=== PATIENT | female | born 1950 | race Caucasian/White ===

== ENCOUNTER 2017-03-31 07:05 | Day surgery (SDC) | payer MEDICARE, MEDICAID ==
[~2017-03-31] VITALS: Ht 170.2 cm; Wt 73.9 kg
[~2017-03-31 07:05] MED LIST: ADVANCED FIBER COMPL PO; APAP PO; ASPIRIN ADULT L81 MG PO; ATORVASTATI80 MG/TAB PO; CLEMASTINE2.68 MG PO; CODEINE PO; FIORICET PO; FOSRENOL500 MG PO; FUROSEMIDE40 MG PO; GABAPENTIN300 MG PO; GLIPIZIDE10 MG PO; HUMULIN R500 UNIT/M; HUMULIN SC; KLOR-CON20 MEQ PO; LANTUS100 UNIT/M; LASIX 40 MG TAB40 MG PO; LYRICA100 MG PO; LYRICA150 MG PO; LYRICA50 MG PO; METOLAZONE5 MG PO; METOPROL TAR25 M1 PO; PLAVIX75 MG PO; PREDNISONE SOLUT5 ML AU; PROTONIX40 M2 PO; RANITIDINE150 M1 PO; TRAMADOL HCL50 MG PO; ULTRAM50 M1 PO; VITAMIN D1000 UNIT PO; VITAMIN D22000 UNIT PO; VOLTAREN1%GEL TOP; XANAX0.5 MG PO; ZESTRIL5 M1 PO; [UNRECOGNIZED DRUG - OTHER] EX
[2017-03-31 09:32] VITALS: BP 163/79
== END 2017-03-31 09:45 | disposition home or self-care (01) ==
LOC: ORM 07:05
PROVIDERS: ATTEND Anesthesiology Pain Medicine
PROC: 3E0T3TZ Introduction of Destructive Agent into Peripheral Nerves and Plexi, Percutaneous Approach (ICD-10-PCS; principal; 2017-03-31)
DX: M54.5 Low back pain (principal); M47.816 Spondylosis without myelopathy or radiculopathy, lumbar region

== ENCOUNTER 2017-11-03 19:46 | Inpatient (IN) | payer MEDICARE, MEDICAID ==
[~2017-11-03] VITALS: Ht 170.2 cm; Wt 69.8 kg
[~2017-11-03 19:46] MED LIST changes: +HUMULIN 70/30 SC
[2017-11-03 20:26] LABS: INFLUENZA A NONE DETECTED (NONE DETECT); INFLUENZA B NONE DETECTED (NONE DETECT)
[2017-11-03 21:23] LABS: HEMATOCRIT 30.2 % (37.0-47.0); HEMOGLOBIN 10.2 g/dl (12.0-16.0); IMMATURE GRANULOCYTES 0.6 % (0.0-1.0); MEAN CELL VOLUME 91.5 fL CALC (80.0-100.0); MEAN CORPUSCULAR HGB 30.9 pG CALC (26.0-32.0); MEAN CORPUSCULAR HGB CONC 33.8 g/L CALC (32.0-36.0); NEUT# 4.44 thou/uL (2.00-7.15); RED BLOOD COUNT 3.3 mill/uL (4.20-5.60); RED CELL DISTRI WIDTH 12.6 % (11.5-15.5)
[2017-11-03 21:28] LABS: ALBUMIN 3.6 g/dL (3.2-5.0); BILIRUBIN, TOTAL 0.4 mg/dL (0.0-1.4); CREATININE 2.5 mg/dL (0.5-1.0); POTASSIUM 3.9 mmol/l (3.5-5.1)
[2017-11-03 21:36] LABS: URINE BILIRUBIN - DIPSTICK NEGATIVE (NEGATIVE); URINE BLOOD DIPSTICK MODERATE (NEGATIVE); URINE COLOR YELLOW; URINE GLUCOSE - DIPSTICK >=1000 mg/dL (NEGATIVE); URINE KETONE NEGATIVE (NEGATIVE); URINE NITRITE - DIPSTICK NEGATIVE (Negative); URINE PH 5.5 (4.5-8.0); URINE PROTEIN - DIPSTICK 30 mg/dL (NEG-TRACE); URINE UROBILINOGEN - DIPSTICK 0.2 E.U./dL (0.2)
[2017-11-03 21:40] LABS: URINE CLARITY CLOUDY; URINE LEUK ESTERASE SMALL (NEGATIVE)
[2017-11-03 21:42] LABS: URINE BACTERIA MODERATE hpf; URINE SQUAMOUS EPITHELIAL CELL FEW EPI/hpf (0-FEW)
[2017-11-03 22:30] VITALS: BP 135/58
[2017-11-04 04:07] VITALS: BP 145/68
[2017-11-04 05:27] LABS: HEMATOCRIT 31.9 % (37.0-47.0); HEMOGLOBIN 10.8 g/dl (12.0-16.0); MEAN CELL VOLUME 89.9 fL CALC (80.0-100.0); MEAN CORPUSCULAR HGB 30.4 pG CALC (26.0-32.0); MEAN CORPUSCULAR HGB CONC 33.9 g/L CALC (32.0-36.0); RED BLOOD COUNT 3.55 mill/uL (4.20-5.60); RED CELL DISTRI WIDTH 12.4 % (11.5-15.5)
[2017-11-04 05:51] LABS: CREATININE 2.2 mg/dL (0.5-1.0); MAGNESIUM 1.6 mg/dL (1.6-2.3); POTASSIUM 3.5 mmol/l (3.5-5.1)
[2017-11-04 07:45] VITALS: BP 153/65
[2017-11-04 11:16] VITALS: BP 126/60
[2017-11-04 15:37] VITALS: BP 142/70
[2017-11-04 17:22] LABS: BARBITURATES NEGATIVE (NEGATIVE); COCAINE NEGATIVE (NEGATIVE); METHADONE NEGATIVE (NEGATIVE); TETRAHYDROCANNABIONOL NEGATIVE (NEGATIVE); TRICYLIC ANTIDEPRESSANTS NEGATIVE (NEGATIVE)
[2017-11-04 17:23] LABS: OXCYCODONE NEGATIVE (NEGATIVE)
[2017-11-04] MEDS ORDERED: ALENDRONATE70 MG PO (17:49)
[2017-11-04] MEDS ORDERED: AMLODIPINE5 MG PO (17:50)
[2017-11-04] MEDS ORDERED: ASPIRIN 81 LOW81 MG PO (17:51)
[2017-11-04] MEDS ORDERED: LIPITOR20 M1 PO (17:52)
[2017-11-04] MEDS ORDERED: PLAVIX75 MG PO (17:53)
[2017-11-04] MEDS ORDERED: HYDRALAZINE50 MG PO (17:54)
[2017-11-04 19:02] VITALS: BP 154/80
[2017-11-05] VITALS (8 sets, daily range): BP systolic 131–154; BP diastolic 58–73
[2017-11-05 07:07] LABS: HEMATOCRIT 28.8 % (37.0-47.0); MEAN CELL VOLUME 89.4 fL CALC (80.0-100.0); MEAN CORPUSCULAR HGB 31.1 pG CALC (26.0-32.0); MEAN CORPUSCULAR HGB CONC 34.7 g/L CALC (32.0-36.0); RED BLOOD COUNT 3.22 mill/uL (4.20-5.60); RED CELL DISTRI WIDTH 12.6 % (11.5-15.5)
[2017-11-05 07:44] LABS: CREATININE 1.9 mg/dL (0.5-1.0); MAGNESIUM 1.8 mg/dL (1.6-2.3)
[2017-11-05 07:45] LABS: POTASSIUM 4.5 mmol/l (3.5-5.1)
[2017-11-06] VITALS (7 sets, daily range): BP systolic 108–147; BP diastolic 50–83
[2017-11-06 04:51] LABS: HEMATOCRIT 28.4 % (37.0-47.0); HEMOGLOBIN 9.4 g/dl (12.0-16.0); IMMATURE GRANULOCYTES 1.2 % (0.0-1.0); MEAN CELL VOLUME 92.5 fL CALC (80.0-100.0); MEAN CORPUSCULAR HGB 30.6 pG CALC (26.0-32.0); MEAN CORPUSCULAR HGB CONC 33.1 g/L CALC (32.0-36.0); NEUT# 3.11 thou/uL (2.00-7.15); RED BLOOD COUNT 3.07 mill/uL (4.20-5.60); RED CELL DISTRI WIDTH 13.1 % (11.5-15.5)
[2017-11-06 05:45] LABS: CREATININE 2.1 mg/dL (0.5-1.0); MAGNESIUM 1.7 mg/dL (1.6-2.3); POTASSIUM 4.3 mmol/l (3.5-5.1)
[2017-11-06 08:28] LABS: HEMATOCRIT 28.7 % (37.0-47.0); HEMOGLOBIN 9.4 g/dl (12.0-16.0); IMMATURE GRANULOCYTES 0.7 % (0.0-1.0); MEAN CELL VOLUME 92.9 fL CALC (80.0-100.0); MEAN CORPUSCULAR HGB 30.4 pG CALC (26.0-32.0); MEAN CORPUSCULAR HGB CONC 32.8 g/L CALC (32.0-36.0); NEUT# 4.66 thou/uL (2.00-7.15); RED BLOOD COUNT 3.09 mill/uL (4.20-5.60); RED CELL DISTRI WIDTH 13.2 % (11.5-15.5)
[2017-11-06 08:35] LABS: URINE BILIRUBIN - DIPSTICK NEGATIVE (NEGATIVE); URINE BLOOD DIPSTICK NEGATIVE (NEGATIVE); URINE COLOR YELLOW; URINE GLUCOSE - DIPSTICK NEGATIVE (NEGATIVE); URINE KETONE 15 mg/dL (NEGATIVE); URINE LEUK ESTERASE TRACE (Negative); URINE NITRITE - DIPSTICK NEGATIVE (Negative); URINE UROBILINOGEN - DIPSTICK 0.2 E.U./dL (0.2)
[2017-11-06 08:38] LABS: URINE CLARITY SL CLOUDY; URINE PROTEIN - DIPSTICK Trace mg/dL (NEG-TRACE)
[2017-11-06 08:53] LABS: ALBUMIN 3.7 g/dL (3.2-5.0); ALKALINE PHOSPHATASE 312 u/l (38-126); ANION GAP 18 (6-22 (CALC)); BILIRUBIN, TOTAL 0.5 mg/dL (0.0-1.4); BUN 36 mg/dL (8-23); BUN/CREATININE RATIO 16 (12-20 (CALC)); CARBON DIOXIDE 19 mmol/l (22-30); CHLORIDE 104 mmol/l (95-108); CREATININE 2.3 mg/dL (0.5-1.0); GFR 21 ML/MIN (>=60 (CALC)); GFR FOR AFR.AMER. 26 ML/MIN (>=60 (CALC)); POTASSIUM 4.6 mmol/l (3.5-5.1); SGPT/ALT 41 u/l (11-66); SODIUM 137 mmol/l (137-146); TOTAL PROTEIN 7.6 g/dL (6.3-8.2)
[2017-11-06 09:02] LABS: SGOT/AST 57 u/l (9-36)
[2017-11-07 00:03] VITALS: BP 122/62
[2017-11-07 03:00] VITALS: BP 127/62
[2017-11-07 09:30] VITALS: BP 147/6
[2017-11-07 10:15] LABS: HEMATOCRIT 28.7 % (37.0-47.0); HEMOGLOBIN 9.1 g/dl (12.0-16.0); IMMATURE GRANULOCYTES 3.6 % (0.0-1.0); MEAN CORPUSCULAR HGB 30.1 pG CALC (26.0-32.0); MEAN CORPUSCULAR HGB CONC 31.7 g/L CALC (32.0-36.0); NEUT# 3.73 thou/uL (2.00-7.15); RED BLOOD COUNT 3.02 mill/uL (4.20-5.60); RED CELL DISTRI WIDTH 13.3 % (11.5-15.5)
[2017-11-07 10:53] LABS: ALBUMIN 3.2 g/dL (3.2-5.0); BILIRUBIN, TOTAL 0.5 mg/dL (0.0-1.4); CREATININE 2.7 mg/dL (0.5-1.0); TOTAL PROTEIN 6.6 g/dL (6.3-8.2)
[2017-11-07 11:15] LABS: POTASSIUM 6.1 mmol/l (3.5-5.1)
[2017-11-07 16:00] VITALS: BP 142/54
[2017-11-07 19:05] VITALS: BP 144/73
[2017-11-07 23:58] VITALS: BP 114/51
[2017-11-08 04:03] VITALS: BP 129/63
[2017-11-08 05:23] LABS: HEMATOCRIT 27.5 % (37.0-47.0); HEMOGLOBIN 9.1 g/dl (12.0-16.0); IMMATURE GRANULOCYTES 1.7 % (0.0-1.0); MEAN CELL VOLUME 92.9 fL CALC (80.0-100.0); MEAN CORPUSCULAR HGB 30.7 pG CALC (26.0-32.0); MEAN CORPUSCULAR HGB CONC 33.1 g/L CALC (32.0-36.0); NEUT# 3.76 thou/uL (2.00-7.15); RED BLOOD COUNT 2.96 mill/uL (4.20-5.60); RED CELL DISTRI WIDTH 13.2 % (11.5-15.5)
[2017-11-08 05:47] LABS: CREATININE 2.9 mg/dL (0.5-1.0)
[2017-11-08 05:51] LABS: POTASSIUM 5.7 mmol/l (3.5-5.1)
[2017-11-08 08:00] VITALS: BP 145/60
[2017-11-08 12:00] VITALS: BP 126/60
[2017-11-08 13:49] LABS: CREATININE 2.7 mg/dL (0.5-1.0); POTASSIUM 5.1 mmol/l (3.5-5.1)
[2017-11-08 19:15] VITALS: BP 123/64
[2017-11-08 23:40] VITALS: BP 119/56
[2017-11-09] VITALS (13 sets, daily range): BP systolic 118–173; BP diastolic 53–101
[2017-11-09 05:40] LABS: HEMATOCRIT 25.9 % (37.0-47.0); HEMOGLOBIN 8.4 g/dl (12.0-16.0); MEAN CELL VOLUME 94.9 fL CALC (80.0-100.0); MEAN CORPUSCULAR HGB 30.8 pG CALC (26.0-32.0); MEAN CORPUSCULAR HGB CONC 32.4 g/L CALC (32.0-36.0); RED BLOOD COUNT 2.73 mill/uL (4.20-5.60); RED CELL DISTRI WIDTH 13.5 % (11.5-15.5)
[2017-11-09 05:55] LABS: CREATININE 2.8 mg/dL (0.5-1.0); POTASSIUM 4.6 mmol/l (3.5-5.1)
[2017-11-10 00:01] VITALS: BP 140/69
[2017-11-10 04:00] VITALS: BP 148/71
[2017-11-10 06:26] LABS: HEMATOCRIT 28.1 % (37.0-47.0); HEMOGLOBIN 9.2 g/dl (12.0-16.0); MEAN CELL VOLUME 92.1 fL CALC (80.0-100.0); MEAN CORPUSCULAR HGB 30.2 pG CALC (26.0-32.0); MEAN CORPUSCULAR HGB CONC 32.7 g/L CALC (32.0-36.0); RED BLOOD COUNT 3.05 mill/uL (4.20-5.60); RED CELL DISTRI WIDTH 13.2 % (11.5-15.5)
[2017-11-10 06:32] LABS: ALBUMIN 3.3 g/dL (3.2-5.0); CREATININE 2.2 mg/dL (0.5-1.0); POTASSIUM 4.2 mmol/l (3.5-5.1)
[2017-11-10 07:20] VITALS: BP 139/70
[2017-11-10] MEDS ORDERED: PREDNISONE10 MG PO (11:59)
[2017-11-10] MEDS ORDERED: PEPCID20 MG PO (11:59)
[2017-11-10] MEDS ORDERED: TRAMADOL HCL50 MG PO (11:59)
[2017-11-10] MEDS ORDERED: LYRICA75 MG PO (11:59)
[2017-11-10 12:00] VITALS: BP 165/68
[2017-11-10] MEDS ORDERED: VANTIN200 M1 PO (12:05)
== END 2017-11-10 14:30 | disposition home health service (06) | DRG 871 ==
LOC: ED 19:46 → ED-I 21:00 → ED 21:54 → MS2 21:55 → ICU 11-06 07:27
PROVIDERS: Emergency Medicine; Internal Medicine; Nurse Practitioner Family; ADMIT Internal Medicine; ATTEND Internal Medicine
DX: A41.9 Sepsis, unspecified organism (principal); G92 Toxic encephalopathy; N17.9 Acute kidney failure, unspecified; E11.22 Type 2 diabetes mellitus with diabetic chronic kidney disease; N18.4 Chronic kidney disease, stage 4 (severe); N39.0 Urinary tract infection, site not specified; E87.1 Hypo-osmolality and hyponatremia; J44.0 Chronic obstructive pulmonary disease with (acute) lower respiratory infection; E11.42 Type 2 diabetes mellitus with diabetic polyneuropathy; E11.65 Type 2 diabetes mellitus with hyperglycemia; I13.10 Hypertensive heart and chronic kidney disease without heart failure, with stage 1 through stage 4 chronic kidney disease, or unspecified chronic kidney disease; R65.20 Severe sepsis without septic shock; I25.10 Atherosclerotic heart disease of native coronary artery without angina pectoris; B96.20 Unspecified Escherichia coli [E. coli] as the cause of diseases classified elsewhere; D63.8 Anemia in other chronic diseases classified elsewhere; E78.5 Hyperlipidemia, unspecified; E11.51 Type 2 diabetes mellitus with diabetic peripheral angiopathy without gangrene; F15.10 Other stimulant abuse, uncomplicated; Z79.4 Long term (current) use of insulin; M79.651 Pain in right thigh; T42.6X5A Adverse effect of other antiepileptic and sedative-hypnotic drugs, initial encounter; I25.2 Old myocardial infarction; Z99.81 Dependence on supplemental oxygen; Z95.5 Presence of coronary angioplasty implant and graft; Z95.1 Presence of aortocoronary bypass graft; Z79.82 Long term (current) use of aspirin; Z89.411 Acquired absence of right great toe; Z91.19 Patient's noncompliance with other medical treatment and regimen
CPT/HCPCS: G0378; J0692; J2060